=== PATIENT | male | born 1955 | race Hispanic/Latino ===

== ENCOUNTER 2023-02-25 10:06 | Inpatient (IN) | payer OTHER, MEDICARE ==
[2023-02-25 10:53] LABS: #Eosinphils 0.1 thou/uL (0.0-0.7); #Lymphocytes 1.7 thou/uL (1.20-3.40); #Monocytes 0.4 thou/uL (0.11-0.59); #Neutrophils 5.5 thou/uL (1.40-6.50); %Basophils 0.5 % (0.0-1.0); %Eosinophils 0.7 % (0.0-10.0); %Lymphocytes 21.9 % (21.0-51.0); %Monocytes 4.7 % (0.0-10.0); %Neutrophils 72.2 % (42.0-75.0); Hemoglobin 15.9 g/dL (14.0-18.0); Mean Corpuscular HGB CONC 35.4 g/dL (32.0-36.0); Mean Corpuscular Hemoglobin 31.4 pg (27.0-31.0); Mean Corpuscular Volume 88.7 fl (78.0-98.0); Platelet Count 297 10x3/uL (130-400); RBC Distribution Width 11.9 % (11.5-14.5); Red Blood Cell (RBC) Count 5.05 mill/uL (4.70-6.10); White Blood Cell (WBC) Count 7.6 10x3/uL (4.8-10.8)
[2023-02-25 11:06] LABS: INR-International Normal Ratio 0.9; PTT 25.4 sec (22.9-36.1); Prothrombin Time 12.5 sec (12.0-14.7)
[2023-02-25 11:07] LABS: ALT (SGPT) 30 U/L (8-55); AST (SGOT) 24 U/L (5-34); Albumin 4.2 g/dL (3.4-4.8); Alkaline Phosphatase 72 U/L (40-110); Anion Gap 13 mmol/L (10-20); BUN (Urea Nitrogen) 32 mg/dL (8.4-25.7); Bilirubin, Total 0.5 mg/dL (0.2-1.2); Calc. Creatinine Clearance 0 mL/min (70-130); Calcium 9.8 mg/dL (7.8-10.44); Carbon Dioxide 26 mmol/L (23-31); Chloride 97 mmol/L (98-107); Estimated GFR 40; Globulin 3.9 g/dL (2.4-3.5); Glucose 374 mg/dL (80-115); Potassium 4.2 mmol/L (3.5-5.1); Protein, Total 8.1 g/dL (5.8-8.1); Sodium 132 mmol/L (136-145)
[2023-02-25 11:31] LABS: CKMB 4.7 ng/mL (0-6.6)
[2023-02-25 13:05] LABS: Bacteria/HPF None Seen HPF (None Seen); Bilirubin Negative (Negative); Blood, Urine 1+ (Negative); Clarity Clear (Clear); Glucose, Urine (Dipstick) Greater than 1000 mg/dL (Negative); Ketone, Urine Negative (Negative); Leukocyte Negative Leu/uL (Negative); Nitrite Negative (Negative); Protein, Urine (Dipstick) 300 mg/dL (Neg-Trace); RBC/HPF 0-3 HPF (0-3); Specific Gravity, Urine 1.019 (1.002-1.036); Squamous Epithelial 0-3 HPF (0-3); Urobilinogen Normal mg/dL (Less than 2); WBC/HPF 0-3 HPF (0-3); pH, Urine 6.5 (5.0-9.0)
[2023-02-25] MEDS ORDERED: methylPREDNISolone Sod Succ/PF 125 MG/2 ML VIAL ONE (13:43)
[2023-02-25] MEDS ORDERED: cloNIDine 0.1 MG TAB ONE ×2 (15:10→21:27)
[2023-02-25] MEDS ORDERED: Ondansetron PF 4 MG/2 ML Vial IVP PRN (16:10)
[2023-02-25] MEDS ORDERED: Docusate 100 MG CAP PO PRN (16:10)
[2023-02-25] MEDS ORDERED: Ondansetron ODT 4 MG TAB PO PRN (16:10)
[2023-02-25] MEDS ORDERED: Electrolyte Replacement Protocol 1 EACH IVPB SCH (16:10)
[2023-02-25] MEDS ORDERED: Mag-Al 1200 mg/1200 mg/30 ML UDCUP PO PRN (16:10)
[2023-02-25] MEDS ORDERED: Sodium Chloride 0.9% 1,000 ML IV SCH (17:00)
[2023-02-25 19:32] LABS: Troponin I 0.027 ng/mL (< 0.028)
[2023-02-25] MEDS: HumaLOG 300 UNITS/3 ML VIAL SC SCH (22:13)
[2023-02-25] MEDS: Rosuvastatin 20 MG TAB PO SCH (22:16)
[2023-02-25] MEDS: Insulin Glargine 30 UNITS/0.3 ML VIAL SC SCH (22:20)
[2023-02-25] MEDS: cloNIDine 0.2 MG TAB PO SCH (22:21)
[2023-02-26] MEDS: HumaLOG 300 UNITS/3 ML VIAL SC PRN ×4 (00:49→18:12)
[2023-02-26 05:24] LABS: #Lymphocytes 1.1 thou/uL (1.20-3.40); #Monocytes 0.2 thou/uL (0.11-0.59); #Neutrophils 7.2 thou/uL (1.40-6.50); %Basophils 0.3 % (0.0-1.0); %Lymphocytes 12.9 % (21.0-51.0); %Monocytes 1.8 % (0.0-10.0); Hemoglobin 13.5 g/dL (14.0-18.0); Mean Corpuscular HGB CONC 34.9 g/dL (32.0-36.0); Mean Corpuscular Hemoglobin 31.4 pg (27.0-31.0); Mean Platelet Volume 7.8 fL (7.4-10.4); Platelet Count 267 10x3/uL (130-400); RBC Distribution Width 11.8 % (11.5-14.5); Red Blood Cell (RBC) Count 4.31 mill/uL (4.70-6.10); White Blood Cell (WBC) Count 8.5 10x3/uL (4.8-10.8)
[2023-02-26 05:29] LABS: Hemoglobin A1c 12.8 % (4.0-6.0)
[2023-02-26 05:54] LABS: ALT (SGPT) 23 U/L (8-55); AST (SGOT) 20 U/L (5-34); Albumin 3.4 g/dL (3.4-4.8); Alkaline Phosphatase 57 U/L (40-110); Anion Gap 11 mmol/L (10-20); BUN (Urea Nitrogen) 35 mg/dL (8.4-25.7); Bilirubin, Total 0.3 mg/dL (0.2-1.2); Calc. Creatinine Clearance 43 mL/min (70-130); Calcium 8.8 mg/dL (7.8-10.44); Carbon Dioxide 24 mmol/L (23-31); Cardiac Risk 2.6 (Less than 4.5); Chloride 101 mmol/L (98-107); Cholesterol 118 mg/dl (< 200 Desired); Estimated GFR 43; Globulin 3.1 g/dL (2.4-3.5); Glucose 337 mg/dL (80-115); HDL Cholesterol 45 mg/dL (>60 Neg Risk); LDL Cholesterol, Calculated 61 mg/dL; Potassium 4.2 mmol/L (3.5-5.1); Protein, Total 6.5 g/dL (5.8-8.1); Sodium 132 mmol/L (136-145); Triglycerides 62 mg/dL (Less than 150)
[2023-02-26] MEDS: Ezetimibe 10 MG TAB PO SCH (10:08)
[2023-02-26] MEDS: Insulin Glargine 30 UNITS/0.3 ML VIAL SC SCH ×2 (10:09→22:13)
[2023-02-26] MEDS: HumaLOG 300 UNITS/3 ML VIAL SC SCH ×2 (10:12→22:14)
[2023-02-26] MEDS: Sodium Chloride 0.9% 1,000 ML IV SCH ×2 (10:16→12:35)
[2023-02-26] MEDS: Acetaminophen 325 MG TAB PO PRN (10:20)
[2023-02-26] MEDS: Alogliptin 6.25 MG TAB PO SCH (14:03)
[2023-02-26] MEDS: cloNIDine 0.2 MG TAB PO SCH (22:14)
[2023-02-26] MEDS: Rosuvastatin 20 MG TAB PO SCH (22:14)
[2023-02-27] MEDS: Sodium Chloride 0.9% 1,000 ML IV SCH ×2 (03:53→18:00)
[2023-02-27] MEDS ORDERED: Dextrose 50% Abboject 50 ML SYRINGE SLOW IVP PRN (08:01)
[2023-02-27] MEDS ORDERED: Dextrose 5% in Water 1,000 ML IV PRN (08:01)
[2023-02-27] MEDS ORDERED: Insulin Glargine 30 UNITS/0.3 ML VIAL SC SCH ×2 (09:00→21:00)
[2023-02-27] MEDS: Alogliptin 6.25 MG TAB PO SCH (09:44)
[2023-02-27] MEDS: Ezetimibe 10 MG TAB PO SCH (09:45)
[2023-02-27] MEDS: Insulin Glargine 30 UNITS/0.3 ML VIAL SC SCH (09:45)
[2023-02-27] MEDS: HumaLOG 300 UNITS/3 ML VIAL SC SCH (09:46)
[2023-02-27] MEDS: HumaLOG 300 UNITS/3 ML VIAL SC PRN ×2 (11:56→18:04)
[2023-02-27] MEDS ORDERED: Alogliptin 6.25 MG TAB PO SCH (12:45)
[2023-02-27] MEDS: hydrALAZINE 20 MG/ML VIAL SLOW IVP PRN (17:14)
[2023-02-27] MEDS: cloNIDine 0.2 MG TAB PO SCH (21:25)
[2023-02-27] MEDS: Rosuvastatin 20 MG TAB PO SCH (21:25)
[2023-02-28 05:34] LABS: Anion Gap 6 mmol/L (10-20); BUN (Urea Nitrogen) 26 mg/dL (8.4-25.7); Calc. Creatinine Clearance 63 mL/min (70-130); Calcium 8.4 mg/dL (7.8-10.44); Carbon Dioxide 25 mmol/L (23-31); Chloride 108 mmol/L (98-107); Estimated GFR 68; Glucose 74 mg/dL (80-115); Magnesium 2.1 mg/dL (1.6-2.6); Potassium 4.1 mmol/L (3.5-5.1); Sodium 135 mmol/L (136-145)
[2023-02-28 06:25] VITALS: BMI 30.7
[2023-02-28] MEDS: Acetaminophen 325 MG TAB PO PRN (07:47)
[2023-02-28] MEDS: Sodium Chloride 0.9% 1,000 ML IV SCH (07:47)
[2023-02-28] MEDS: Alogliptin 25 MG TAB PO SCH (09:12)
[2023-02-28] MEDS: HumaLOG 300 UNITS/3 ML VIAL SC SCH ×2 (09:13→09:58)
[2023-02-28] MEDS: Insulin Glargine 30 UNITS/0.3 ML VIAL SC SCH ×3 (09:13→15:12)
[2023-02-28] MEDS: Ezetimibe 10 MG TAB PO SCH (09:13)
[2023-02-28] MEDS: hydrALAZINE 20 MG/ML VIAL SLOW IVP PRN (10:20)
[2023-02-28] MEDS: HumaLOG 300 UNITS/3 ML VIAL SC PRN ×3 (13:04→21:18)
[2023-02-28] MEDS ORDERED: Amlodipine 5 MG TAB PO SCH (19:00)
[2023-02-28] MEDS: cloNIDine 0.2 MG TAB PO SCH (21:19)
[2023-02-28] MEDS: Rosuvastatin 20 MG TAB PO SCH (21:19)
[2023-03-01 05:56] LABS: #Eosinphils 0.1 thou/uL (0.0-0.7); #Lymphocytes 1.8 thou/uL (1.20-3.40); #Monocytes 0.6 thou/uL (0.11-0.59); #Neutrophils 3.7 thou/uL (1.40-6.50); %Basophils 0.2 % (0.0-1.0); %Lymphocytes 29.1 % (21.0-51.0); %Monocytes 9.8 % (0.0-10.0); %Neutrophils 58.9 % (42.0-75.0); Hemoglobin 12.2 g/dL (14.0-18.0); Mean Corpuscular HGB CONC 34.5 g/dL (32.0-36.0); Mean Corpuscular Hemoglobin 31.4 pg (27.0-31.0); Platelet Count 223 10x3/uL (130-400); RBC Distribution Width 11.9 % (11.5-14.5); Red Blood Cell (RBC) Count 3.87 mill/uL (4.70-6.10); White Blood Cell (WBC) Count 6.2 10x3/uL (4.8-10.8)
[2023-03-01 06:16] LABS: Anion Gap 10 mmol/L (10-20); BUN (Urea Nitrogen) 24 mg/dL (8.4-25.7); Calc. Creatinine Clearance 58 mL/min (70-130); Calcium 8.6 mg/dL (7.8-10.44); Carbon Dioxide 22 mmol/L (23-31); Chloride 107 mmol/L (98-107); Estimated GFR 60; Glucose 175 mg/dL (80-115); Sodium 135 mmol/L (136-145)
[2023-03-01] MEDS: HumaLOG 300 UNITS/3 ML VIAL SC PRN (06:24)
[2023-03-01] MEDS: Alogliptin 25 MG TAB PO SCH (08:41)
[2023-03-01] MEDS: Ezetimibe 10 MG TAB PO SCH (08:41)
[2023-03-01] MEDS: Insulin Glargine 30 UNITS/0.3 ML VIAL SC SCH (08:42)
[2023-03-01] MEDS: HumaLOG 300 UNITS/3 ML VIAL SC SCH (08:42)
[2023-03-01 12:10] VITALS: BP 138/66; TEMP 98.2
[2023-03-01] MEDS ORDERED: Amlodipine 5 MG TAB PO SCH (18:00)
== END 2023-03-01 16:00 | disposition home health service (06) | DRG 83 ==
LOC: SUATTDRO 10:06 → ERS 10:06 → ERHOLD 16:16 → NEURO 16:28
PROVIDERS: ADMIT Internal Medicine; ATTEND Internal Medicine
DX: S06.5XAA Traumatic subdural hemorrhage with loss of consciousness status unknown, initial encounter (principal); N17.9 Acute kidney failure, unspecified; I12.9 Hypertensive chronic kidney disease with stage 1 through stage 4 chronic kidney disease, or unspecified chronic kidney disease; E78.5 Hyperlipidemia, unspecified; E11.22 Type 2 diabetes mellitus with diabetic chronic kidney disease; I25.10 Atherosclerotic heart disease of native coronary artery without angina pectoris; R40.2362 Coma scale, best motor response, obeys commands, at arrival to emergency department; R40.2142 Coma scale, eyes open, spontaneous, at arrival to emergency department; R40.2252 Coma scale, best verbal response, oriented, at arrival to emergency department; Z95.1 Presence of aortocoronary bypass graft; Z88.1 Allergy status to other antibiotic agents; Z79.899 Other long term (current) drug therapy; Z79.4 Long term (current) use of insulin; Z79.84 Long term (current) use of oral hypoglycemic drugs; Z86.73 Personal history of transient ischemic attack (TIA), and cerebral infarction without residual deficits; V89.2XXA Person injured in unspecified motor-vehicle accident, traffic, initial encounter
CPT/HCPCS: 36415; 36416; 70450; 70551; 80048; 80053; 80061; 81003; 81015; 82553; 83036; 83735; 84484; 85025; 85610; 85730; 93005; 93880; 95712; 95819; 95957; J0360; J1815; J2930; J7050

== ENCOUNTER 2023-09-02 16:14 | Emergency (ER) | payer MEDICARE ==
[2023-09-02] MEDS ORDERED: Morphine 4 MG/ML VIAL ONE (17:12)
[2023-09-02] MEDS ORDERED: Ondansetron PF 4 MG/2 ML Vial ONE (17:13)
[2023-09-02 17:40] LABS: #Monocytes 0.6 thou/uL (0.11-0.59); #Neutrophils 6.1 thou/uL (1.40-6.50); %Basophils 0.4 % (0.0-1.0); %Eosinophils 0.1 % (0.0-10.0); %Lymphocytes 18.7 % (21.0-51.0); %Monocytes 6.7 % (0.0-10.0); %Neutrophils 73.7 % (42.0-75.0); Hematocrit 23.3 % (42.0-52.0); Hemoglobin 7.9 g/dL (14.0-18.0); Mean Corpuscular HGB CONC 33.9 g/dL (32.0-36.0); Mean Corpuscular Hemoglobin 27.1 pg (27.0-31.0); Mean Corpuscular Volume 79.8 fl (78.0-98.0); Mean Platelet Volume 10.6 fL (7.4-10.4); Platelet Count 143 10x3/uL (130-400); RBC Distribution Width 14.8 % (11.5-14.5); Red Blood Cell (RBC) Count 2.92 mill/uL (4.70-6.10); White Blood Cell (WBC) Count 8.3 10x3/uL (4.8-10.8)
[2023-09-02 18:03] LABS: ALT (SGPT) 63 U/L (8-55); AST (SGOT) 34 U/L (5-34); Albumin 4.2 g/dL (3.4-4.8); Alkaline Phosphatase 80 U/L (40-110); Anion Gap 15 mmol/L (10-20); BUN (Urea Nitrogen) 30 mg/dL (8.4-25.7); Bilirubin, Total 0.3 mg/dL (0.2-1.2); Calc. Creatinine Clearance 0 mL/min (70-130); Calcium 8.9 mg/dL (7.8-10.44); Carbon Dioxide 23 mmol/L (23-31); Chloride 100 mmol/L (98-107); Estimated GFR 39; Globulin 2.7 g/dL (2.4-3.5); Glucose 179 mg/dL (80-115); Potassium 4.1 mmol/L (3.5-5.1); Protein, Total 6.9 g/dL (5.8-8.1); Sodium 134 mmol/L (136-145)
== END 2023-09-02 20:34 | disposition home or self-care (01) ==
LOC: ERS 16:14
DX: I99.8 Other disorder of circulatory system (principal); I10 Essential (primary) hypertension; E11.9 Type 2 diabetes mellitus without complications; Z79.899 Other long term (current) drug therapy
CPT/HCPCS: 80053; 85025; 86140; 93926; 96374; 96375; J2270; J2405